=== PATIENT | male | born 1985 | race Caucasian/White ===

== ENCOUNTER 2017-12-04 20:09 | Emergency (ER) | payer SELFPAY ==
[2017-12-04] MEDS ORDERED: ASPIRIN PO ONE (20:36)
[2017-12-04 20:47] LABS: Basophils % (Auto) 0.3 % (0.0-1.8); Eosinophils # (Auto) 0.1 K/mm3 (0.0-0.4); Hematocrit 47.7 % (35.5-45.6); Hemoglobin 16.1 gm/dl (11.8-15.2); Lymphocytes # (Auto) 1.3 K/mm3 (1.2-5.4); Lymphocytes % (Auto) 9.1 % (13.4-35.0); Mean Corpuscular HGB Conc 34 % (32-34); Mean Corpuscular Hemoglobin 29 pg (28-32); Mean Corpuscular Volume 85 fl (84-94); Monocytes # (Auto) 0.8 K/mm3 (0.0-0.8); Monocytes % (Auto) 5.7 % (0.0-7.3); Platelet Count 233 K/mm3 (140-440); Red Blood Count 5.61 M/mm3 (3.65-5.03); Red Cell Distribution Width 13.4 % (13.2-15.2)
[2017-12-04 21:21] LABS: BUN/Creatinine Ratio 14; Blood Urea Nitrogen 13 mg/dL (9-20); Hemolysis Index 11
--- NOTE | 2017-12-04 21:23 | Emergency Department Report ---
ED Chest Pain HPI - General Chief Complaint: Chest Pain Stated Complaint: COUGH Time Seen by Provider: 12/04/17 20:59 Source: patient Mode of arrival: Ambulatory Limitations: Language Barrier (nurse provided Maltese interpretation) - History of Present Illness Initial Comments: Mr. Peacock is a healthy 32 year old male who presents with one day of chest pain and lightheadedness. He has mild dyspnea. He has central pain sharp when he takes in a deep breath. No family hx of CAD. No hx of tobacco, marijuana or cocaine use. MD Complaint: chest pain -: Gradual, days(s) (1) Onset: during rest Pain Location: substernal Pain Radiation: none Severity: moderate Severity scale (0 -10): 5 Quality: sharp Consistency: constant Worsens With: inspiration - Related Data Previous Rx's Medication Instructions Recorded Last Taken Type Levofloxacin [Levaquin] 750 mg PO QDAY 6 Days #6 tablet 12/05/17 Unknown Rx Allergies Allergy/AdvReac Type Severity Reaction Status Date / Time No Known Allergies Allergy Verified 12/04/17 20:31 Heart Score - HEART Score History: Slightly suspicious EKG: Non-specific Age: < 45 Risk factors: No known risk factors Troponin: < normal limit HEART Score: 1 ED Review of Systems ROS: Stated complaint: COUGH Other details as noted in HPI Comment: All other systems reviewed and negative Constitutional: denies: chills, fever Eyes: denies: eye discharge, vision change Respiratory: shortness of breath. denies: cough, wheezing Cardiovascular: chest pain. denies: palpitations Endocrine: no symptoms reported Gastrointestinal: denies: abdominal pain, nausea, diarrhea Genitourinary: denies: urgency, dysuria Musculoskeletal: denies: back pain Skin: denies: rash, lesions Neurological: denies: headache, weakness, paresthesias ED Past Medical Hx - Past Medical History Previous Medical History?: No - Surgical History Past Surgical History?: No - Social History Smoking Status: Never Smoker Substance Use Type: None - Medications Home Medications: Home Medications Medication Instructions Recorded Confirmed Last Taken Type Levofloxacin [Levaquin] 750 mg PO QDAY 6 Days #6 tablet 12/05/17 Unknown Rx ED Physical Exam - General Limitations: No Limitations General appearance: alert, in no apparent distress - Head Head exam: Present: atraumatic, normocephalic - Eye Eye exam: Present: normal appearance - ENT ENT exam: Present: normal exam, mucous membranes moist - Neck Neck exam: Present: normal inspection. Absent: tenderness, meningismus - Respiratory Respiratory exam: Present: normal lung sounds bilaterally. Absent: respiratory distress, wheezes, rales, rhonchi - Cardiovascular Cardiovascular Exam: Present: regular rate, normal rhythm. Absent: systolic murmur, diastolic murmur, rubs, gallop - GI/Abdominal GI/Abdominal exam: Present: soft, normal bowel sounds. Absent: distended, tenderness, guarding, rebound - Rectal Rectal exam: Present: deferred - Extremities Exam Extremities exam: Present: normal inspection - Back Exam Back exam: Present: normal inspection - Neurological Exam Neurological exam: Present: alert, oriented X3 - Psychiatric Psychiatric exam: Present: normal affect, normal mood - Skin Skin exam: Present: warm, dry, intact, normal color. Absent: rash ED Course Vital Signs 12/04/17 12/04/17 12/04/17 20:31 21:00 21:10 Temperature 98.4 F Pulse Rate 84 89 Respiratory 16 Rate Blood Pressure 133/65 O2 Sat by Pulse 98 99 Oximetry 12/04/17 12/04/17 12/04/17 21:15 21:30 21:45 Temperature Pulse Rate Respiratory Rate Blood Pressure 141/76 141/76 129/74 O2 Sat by Pulse 98 99 100 Oximetry 12/04/17 12/04/17 12/04/17 22:24 22:30 22:45 Temperature Pulse Rate 74 74 73 Respiratory 18 17 19 Rate Blood Pressure 136/76 136/74 O2 Sat by Pulse 98 98 98 Oximetry 12/04/17 12/04/17 12/04/17 23:00 23:15 23:30 Temperature Pulse Rate 67 65 68 Respiratory 8 L 24 14 Rate Blood Pressure 136/76 137/76 135/75 O2 Sat by Pulse 95 98 98 Oximetry 12/04/17 12/05/17 12/05/17 23:45 00:03 00:15 Temperature Pulse Rate 67 67 65 Respiratory 24 17 15 Rate Blood Pressure 133/77 133/77 123/71 O2 Sat by Pulse 97 97 97 Oximetry 12/05/17 12/05/17 00:30 00:45 Temperature Pulse Rate 65 60 Respiratory 15 13 Rate Blood Pressure 133/75 120/66 O2 Sat by Pulse 96 97 Oximetry ED Medical Decision Making - Lab Data Result diagrams: 12/04/17 20:38 12/04/17 20:38 - EKG Data -: EKG Interpreted by Me - EKG Data 12/04/17 21:25 EKG number 1 obtained at 2052 Normal sinus rhythm rate of 60, right axis deviation normal intervals positive LVH with ST elevation V1 to V3 and V2 and inverted T waves in 1 aVL V4 V5 and V6 Zachary like morphology concerning for STEMI versus LVH repolarization abnormality Q waves present in the inferior leads V3 12/04/17 21:26 EKG 21:17 NSR rate 70 bpm right axis deviation normal intervals ST elevation still present with tombstone morphology ST elevation now present in V4 V5 dynamic changes from previous EKG - Medical Decision Making Upon seeing the initial EKG, I activated code STEMI. I spoke with interventional lists Dr. Thompson. He did see both EKGs. He did agree that the morphology in V3 was quite ominous. However with the lack of risk factors and history, STEMI would not be likely. Dr. Thompson recommended troponin and serial EKGs. Serial troponins negative for PR CXR and CTA revealed Pneumonia rx: levaquin dc'd home Critical care attestation.: If time is entered above; I have spent that time in minutes in the direct care of this critically ill patient, excluding procedure time. ED Disposition Clinical Impression: Pneumonia Disposition: DC-01 TO HOME OR SELFCARE Is pt being admited?: No Does the pt Need Aspirin: No Condition: Stable Instructions: Bacterial Pneumonia (ED), Community-acquired Pneumonia (ED) Prescriptions: Levofloxacin [Levaquin] 750 mg PO QDAY 6 Days #6 tablet Referrals: [facility] [Outside] - 7-10 days Forms: Work/School Release Form(ED) Time of Disposition: 01:20 Print Language: GERMAN
[2017-12-04] MEDS ORDERED: MOTRIN PO ONE (21:47)
--- NOTE | 2017-12-04 23:51 | Cat Scan Report ---
FINAL REPORT PROCEDURE: CT ANGIO CHEST TECHNIQUE: Computerized tomographic angiography of the chest was performed after the IV injection of iodinated nonionic contrast including image processing. The image data was postprocessed using 2-dimensional multiplanar reformatted (MPR) and 3-dimensional (MIP and/or volume rendered) techniques. HISTORY: pleuritic chest pain COMPARISON: No prior studies are available for comparison. FINDINGS: Heart and pericardium: Normal. Thoracic aorta: Normal. Pulmonary vasculature: Normal. Lymph nodes: No enlarged thoracic lymph nodes. Lungs: Infiltrates are identified involving the upper, middle and lower lobes. 6 millimeters subpleural nodule is noted involving the lateral segment right middle lobe as seen in image number 82 of series 3.. Pleural space: No effusion, thickening, or pneumothorax. Musculoskeletal structures: No significant abnormality. Upper abdominal structures: No significant abnormality. IMPRESSION: Infiltrates right lung as described above. Small nodule right middle lobe. 3 to six-month follow-up study is recommended.
--- NOTE | 2017-12-05 00:04 | XRay Report ---
FINAL REPORT PROCEDURE: XR CHEST 1V AP TECHNIQUE: Chest radiograph anteroposterior view. CPT 04870 HISTORY: chest pain COMPARISON: No prior studies are available for comparison. FINDINGS: Heart: Normal. Mediastinum/Vessels: Normal. Lungs/Pleural space: Mild slight scattered pneumonitis. No effusion or pneumothorax. Bony thorax: No acute osseous abnormality. Life support devices: None. IMPRESSION: Mild scattered bilateral pneumonitis..
[2017-12-05] MEDS ORDERED: MOTRIN ONE (00:07)
[2017-12-05] MEDS ORDERED: LEVAQUIN PO ONE (01:17)
[2017-12-05 03:38] VITALS: BP 124/69
== END 2017-12-05 03:37 | disposition home or self-care (01) ==
LOC: ED 20:09
DX: J18.9 Pneumonia, unspecified organism (principal)
CPT/HCPCS: 36415; 71045; 71275; 80048; 84484; 85025; 87040; 93005; 93010; 99285; Q9967